=== PATIENT | female | born 1965 | race Two or more races ===

== ENCOUNTER 2023-02-13 21:44 | Emergency (ER) | payer OTHER ==
[~2023-02-13] VITALS: Ht 157.5 cm; Wt 100.0 kg
[2023-02-13] MEDS ORDERED: HYDROcodone-ACET 10/325MG TAB PO ONE (22:30)
[2023-02-13] MEDS ORDERED: KETOROLAC TROMETH 60MG/2ML VIAL IM ONE (22:30)
[2023-02-14] MEDS ORDERED: ZOFR4T PO (00:59)
[2023-02-14] MEDS ORDERED: IBUP-1455 PO (00:59)
[2023-02-14] MEDS ORDERED: ACET500T58 PO (00:59)
[2023-02-14 02:53] VITALS: BP 123/78; PULSE 68; RESP 17; TEMP 97.7; O2SAT 98
== END 2023-02-14 03:31 | disposition home or self-care (01) ==
LOC: ER 21:44
DX: S16.1XXA Strain of muscle, fascia and tendon at neck level, initial encounter (principal); S09.8XXA Other specified injuries of head, initial encounter; R55 Syncope and collapse; R42 Dizziness and giddiness; W01.0XXA Fall on same level from slipping, tripping and stumbling without subsequent striking against object, initial encounter; Y93.89 Activity, other specified; Y92.89 Other specified places as the place of occurrence of the external cause; Y99.8 Other external cause status
CPT/HCPCS: 70450; 72125; 96372; 99285; J1885

== ENCOUNTER 2024-12-07 23:53 | Emergency (ER) | payer OTHER ==
[~2024-12-07] VITALS: Ht 157.5 cm; Wt 103.7 kg
[~2024-12-07 23:53] MED LIST: ACET500T58 PO; IBUP-1455 PO; ZOFR4T PO
[2024-12-08 01:01] VITALS: BP 120/63; PULSE 70; RESP 16; TEMP 98.3; O2SAT 97
--- NOTE | 2024-12-08 01:54 | ED.PDOC ---
Rosana. trauma (HPI) HPI Comments Female presents to the ED status post slip and fall at work. Patient states she slipped on a wet floor fell on her left side injuring her left shoulder right hip and right knee. He notes pain 8/10 on pain scale throbbing and achy in nature. Has not taken any medications [id number]. She denies LOC, hitting her head neck pain back pain difficulty breathing shortness of breath, chest pain or abdominal pain. Chief Complaint: Fall Injury Time Seen by MD: 00:30 Reviewed notes: Nurses Notes, Medications, Allergies Allergies: Coded Allergies: NO KNOWN ALLERGIES (Unverified , 02/13/23) Home Meds Active Scripts Ondansetron Odt 4MG Tab (ZOFRAN PO) 4 Mg Tb, 4 MG PO Q6HP PRN, #20 TAB ODT TAB-DISSOLVE IN MOUTH, THEN SWALLOW Prov:CRISTOFER YODER PAC 02/14/23 Acetaminophen (Acetaminophen) 500 Mg Tab, 500 MG PO Q4HP PRN, #30 TAB Prov:CRISTOFER YODER PAC 02/14/23 Ibuprofen Micronized (Ibuprofen) 800 Mg Tab, 800 MG PO Q8HP PRN, #20 TAB Prov:CRISTOFER YODER PAC 02/14/23 Information Source: Patient Mode of Arrival: Ambulatory Past Medical History PAST MEDICAL HISTORY: Denies Surgical History: Denies all surgeries BUYER TOBACCO HEAD History: No Pertinent BUYER TOBACCO HEAD History Family History Family History: Reviewed,noncontributory to illness, No family hx of Cancer, No family hx of DM, No family hx of Heart denisse, No family hx of HTN, No family hx ofKidney denisse, No family hx of Liver denisse, No family hx of Lung denisse, No family hx of Stroke Social History Smoker: Non-Smoker Alcohol: Denies ETOH Use Drugs: Denies Drug Use Lives In: Home Constitutional: denies: chills, diaphoresis, fatigue, fever, malaise, sweats, weakness, others EENTM: denies: blurred vision, double vision, ear bleeding, ear discharge, ear drainage, ear pain, ear ringing, eye pain, eye redness, hearing loss, mouth p ain, mouth swelling, nasal discharge, nose bleeding, nose congestion, nose pain, photophobia, tearing, throat pain, throat swelling, voice changes, others Respiratory: denies: cough, hemoptysis, orthopnea, SOB at rest, shortness of br eath, SOB with excertion, stridor, wheezing, others Cardiovascular: denies: chest pain, dizzy spells, diaphoresis, Dyspnea on exertion, edema, irregular heart beat, left arm pain, lightheadedness, palpitations, PND, syncope, others Gastrointestinal: denies: abdomen distended, abdominal pain, blood streaked bowels, constipated, diarrhea, dysphagia, difficulty swallowing, hematemesis, melena, nausea, poor appetite, poor fluid intake, rectal bleeding, rectal pain, vomiting, others Genitourinary: denies: abnormal vagina bleeding, burning, dyspareunia, dysuria, flank pain, frequency, hematuria, incontinence, pain, , vagina discharge, urgency, others Neurological: denies: dizziness, fainting, headache, left sided numbness, left sided weakness, numbness, paresthesia, pre-existing deficit, right sided numbness, right sided weakness, seizure, speech problems, tingling, tremors, weakness, others Musculoskeletal: reports: muscle pain, muscle stiffness, others (Shoulder pain, right hip and knee pain); denies: back pain, gout, joint pain, joint swelling, neck pain Integumetry: denies: bruises, change in color, change in hair/nails, dryness, laceration, lesions, lumps, rash, wounds, others Allergic/Immunocompromised: denies: Difficulty Healing, Frequent Infections, Hives, Itching, others Hematologic/Lymphatic: denies: anemia, blood clots, easy bleeding, easy bruising, swollen glands, others Endocrine: denies: excessive hunger, excessive sweating, excessive thirst, excessive urination, flushing, intolerance to cold, intolerance to heat, unexplained weight gain, unexplained weight loss, others Psychiatric: denies: anxiety, bipolar disorder, depression, hopeless, panic disorder, schizophrenia, sleepless, suicidal, others Physical Exam General Appearance: No Apparent Distress, Normal HEENT: Pharynx Normal Neck: Full Range of Motion, Non-Tender Respiratory: Chest Non-Tender, Lungs Clear, No Respiratory Distress, Normal Breath Sounds Cardiovascular: No Edema, No JVD, No Murmur, No Gallop, Normal Peripheral Pulses, Regular Rate/Rhythm Breast Exam: Deferred Gastrointestinal: No Organomegaly, Non Tender, No Pulsatile Mass, Normal Bowel Sounds, Soft Genitalia: Deferred Pelvic: Deferred Rectal: Deferred Extremities: Normal capillary refill, Normal inspection, Normal range of motion, Non-tender, No pedal edema Musculoskeletal : Location: Right Extremity Location: Knee (Negative Manuel's negative drawer negative ballottement test. 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 Was a procedure done?: No Differential Diagnosis Multiple Trauma: Fractures, Contusion X-Ray, Labs, Meds, VS Vital Signs Date Time Temp Pulse Resp B/P (MAP) Pulse Ox O2 Delivery O2 Flow Rate FiO2 12/08/24 01:01 98.3 70 16 120/63 (82) 97 98.3 X-Ray, Labs, Meds, VS Comment Left shoulder, right hip and right knee x-ray shows no acute fractures dislocations or osseous lesions. This is likely strains status post slip and fall. Script trial of muscle relaxer and Medrol Dosepak to patient's pharmacy on file advised to take medications as prescribed side effects discussed. Advised to rest elevate extremity use ice and heat. Advised to follow up with her PCP and employee health. ER return precautions given patient indicates understanding and agrees with discharge plan of care. Time of 1ST Reevaluation: 01:05 Reevaluation 1ST: Unchanged Time of 2ND Reevaluation: 02:07 Reevaluation 2ND: Improved Patient Education/Counseling: Diagnosis, Treatment, Prognosis, Need For Follow Up Family Education/Counseling: Diagnosis, Treatment, Prognosis, Need For Follow Up Departure 1 Departure Time of Disposition: 02:07 Impression: Primary Impression: Status post fall Additional Impressions: Left shoulder strain Qualified Codes: S46.912A - Strain of unspecified muscle, fascia and tendon at shoulder and upper arm level, left arm, initial encounter Strain of right hip Qualified Codes: S76.011A - Strain of muscle, fascia and tendon of right hip, initial encounter Strain of right knee and leg Qualified Codes: S86.911A - Strain of unspecified muscle(s) and tendon(s) at lower leg level, right leg, initial encounter Disposition: HOME / SELF CARE / HOMELESS Condition: Stable e-Prescriptions Diclofenac Sodium (Diclofenac Sodium Ec) 50 Mg Tab 1 TAB PO BID PRN for 5 Days, #10 TAB Prov: VINH GRANT 12/08/24 Methocarbamol (Methocarbamol) 500 Mg Tab 500 MG PO BID PRN for 5 Days, #10 TAB Prov: VINH GRANT 12/08/24 Discharged With: Significant Other Critical Care Note Critical Care Time?: No Stability Stability form required: No VINH GRANT Dec 08, 2024 01:54
--- NOTE | 2024-12-08 01:56 | DVH ---
EXAM: XY R KNEE 3V XRAY HISTORY: Status post slip and fall COMPARISON: None TECHNIQUE: 3 views of the right knee were performed. FINDINGS: No acute fracture is identified about the right knee. No significant joint space narrowing. No evid ence of significant joint effusion. IMPRESSION: Unremarkable radiographs of the right knee.
--- NOTE | 2024-12-08 01:58 | DVH ---
XY R HIP COMPLETE XRAY, INDICATION: Status post slip and fall TECHNICAL DATA: Frontal and frog lateral views were obtained of the right hip.] COMPARISON: None FINDINGS: The right hip is normally located. The right hip joint is normally maintained with no marginal osteop hytes. No right hip fracture is identified. The right sacroiliac joint appears normal. IMPRESSION: Normal radiographs of the right hip.
--- NOTE | 2024-12-08 01:58 | DVH ---
EXAM: XY L SHOULDER 2+ VIEW XRAY HISTORY: Status post slip and fall COMPARISON: None TECHNIQUE: Four views of the left shoulder were performed. FINDINGS: No acute fracture or dislocation are identified about the left shoulder. No significant degenerative changes or loss of subacromial space. IMPRESSION: Unremarkable radiographs of the left shoulder.
[2024-12-08] MEDS ORDERED: DICL50TA4 PO (02:10)
[2024-12-08] MEDS ORDERED: METH-1181 PO (02:10)
[2024-12-08] MEDS: IBUPROFEN 800 MG TAB PO ONE (02:26)
== END 2024-12-08 02:30 | disposition home or self-care (01) ==
LOC: ER 23:53
DX: S46.812A Strain of other muscles, fascia and tendons at shoulder and upper arm level, left arm, initial encounter (principal); S76.011A Strain of muscle, fascia and tendon of right hip, initial encounter; S86.812A Strain of other muscle(s) and tendon(s) at lower leg level, left leg, initial encounter; W01.0XXA Fall on same level from slipping, tripping and stumbling without subsequent striking against object, initial encounter; Y93.89 Activity, other specified; Y92.89 Other specified places as the place of occurrence of the external cause; Y99.8 Other external cause status
CPT/HCPCS: 73030; 73502; 73562